=== PATIENT | male | born 1995 | race Caucasian/White ===

== ENCOUNTER 2018-05-05 07:14 | Emergency (ER) | payer BC ==
--- NOTE | 2018-05-05 07:28 | EDM.PDOC ---
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 Past medical history: As per history of present illness and as reviewed below otherwise noncontributory. Surgical history: As per history of present illness and as reviewed below otherwise noncontributory. Social history: No reported history of drug or alcohol abuse. Family history: As per history of present illness and as reviewed below otherwise noncontributory. Physical exam: HEENT: Atraumatic, normocephalic, pupils reactive, negative for conjunctival pallor or scleral icterus, mucous membranes moist, throat clear, neck supple, nontender, trachea midline. Lungs: Clear to auscultation, breath sounds equal bilaterally, chest nontender. Heart: S1S2, regular, negative for clicks, rubs, or JVD. Abdomen: Soft, nondistended, nontender. Negative for masses or hepatosplenomegaly. Negative for costovertebral tenderness. Pelvis: Stable nontender. Genitourinary: Deferred. Rectal: Deferred. Extremities: Right wrist has pain over the dorsal and volar aspect of his wrist this is without point tenderness there is no snuffbox tenderness no gross deformity CMS neurovascular exam is unremarkable Neuro: Awake, alert, oriented. Cranial nerves II through XII unremarkable. Cerebellum unremarkable. Motor and sensory unremarkable throughout. Exam nonfocal. Diagnostics: X-ray right wrist Therapeutics: Velcro splint Impression: #1 right wrist pain probable overuse syndrome Definitive disposition and diagnosis as appropriate pending reevaluation and review of above. Right Wrist Pain Score (Numeric/FACES): 5 Review of Systems - Review of Systems Review Of Systems: ROS reveals no pertinent complaints other than HPI. ED EXAM, GENERAL - Physical Exam Exam: See Below (See dictation) Course - Vital Signs Last Recorded V/S: Last Vital Signs Temp 36.2 C 05/05/18 07:21 Pulse 70 05/05/18 07:21 Resp 18 05/05/18 07:21 BP 122/75 05/05/18 07:21 Pulse Ox 99 05/05/18 07:21 - Orders/Labs/Meds Orders: Active Orders 24 hr Category Date Time Status Wrist 2V Rt [CR] Stat Exams 05/05/18 07:20 Ordered Departure - Departure Time of Disposition: 07:27 Disposition: Home, Self-Care 01 Condition: Good Clinical Impression: Wrist pain - Discharge Information Referrals: PCP,None [Primary Care Provider] - Additional Instructions: The following information is given to patients seen in the emergency department who are being discharged to home. This information is to outline your options for follow-up care. We provide all patients seen in our emergency department with a follow-up referral. The need for follow-up, as well as the timing and circumstances, are variable depending upon the specifics of your emergency department visit. If you don't have a primary care physician on staff, we will provide you with a referral. We always advise you to contact your personal physician following an emergency department visit to inform them of the circumstance of the visit and for follow-up with them and/or the need for any referrals to a consulting specialist. The emergency department will also refer you to a specialist when appropriate. This referral assures that you have the opportunity for followup care with a specialist. All of these measure are taken in an effort to provide you with optimal care, which includes your followup. Under all circumstances we always encourage you to contact your private physician who remains a resource for coordinating your care. When calling for followup care, please make the office aware that this follow-up is from your recent emergency room visit. If for any reason you are refused follow-up, please contact the [facility] emergency department at and asked to speak to the emergency department charge nurse. [facility] specialty clinic-Plastics [address] [place] [id number] Anaprox Ultram as prescribed splint as directed call to schedule appointment with hand surgery above return as needed as discussed - My Orders Last 24 Hours: My Active Orders 05/05/18 07:20 Wrist 2V Rt [CR] Stat - Assessment/Plan Last 24 Hours: My Active Orders 05/05/18 07:20 Wrist 2V Rt [CR] Stat
--- NOTE | 2018-05-07 12:52 | CR ---
EXAM DATE: 05/05/18 PATIENT'S AGE: 23 Patient: CLYDE PARRISH Facility: [place], [place] Site . Site : 1995 Study: XRay Extremity Right [id number]/9/2018 7:38:26 AM Ordering Physician: Doctor Klein Final Report: INDICATION: pain INDICATION: Wrist pain. TECHNIQUE: Right wrist, three views. COMPARISON: None FINDINGS: Bones: Alignment is normal. No fractures or bone lesions. Joint spaces: Unremarkable. Soft tissues: Unremarkable. IMPRESSION: 1. No acute bone abnormality. 2. The proximal/distal rows of the carpus are intact. Dictated by Neto Barrientos MD @ 05/05/2018 7:40:35 AM Dictated by: Neto Barrientos MD @ 05/05/2018 07:40:41 (Electronic Signature) Report Signed by Proxy. [email or web address]
== END 2018-05-05 08:03 | disposition home or self-care (01) ==
LOC: MW.ED 07:14
DX: M25.531 Pain in right wrist (principal)
CPT/HCPCS: 73100-26-RT; 73100-RT; 99283